=== PATIENT | female | born 1975 | race American Indian/Alaskan Native ===

== ENCOUNTER 2019-05-02 10:34 | Outpatient (CLI) | payer OTHER ==
--- NOTE | 2019-05-02 11:19 | XRay Report ---
BILATERAL FEET, 2 VIEWS INDICATION: BILATERAL FOOT PAIN. COMPARISON: None. IMPRESSION: There has been previous surgical fusion of the talus, calcaneus, navicular and cuboid inna mario in both feet. Please correlate with surgical history. The talar domes in both feet appear flatten ed and irregular suggesting previous fracture. The metatarsals and phalanges are intact and unremarka ble. No erosive joint pathology is identified. No acute osseous findings or bony destruction is detec lowell. The soft tissues are unremarkable. Signer Name: Marcial Jackson Jr, MD Signed: 05/02/2019 11:15 AM Workstation Name: [id number]
== END 2019-05-02 10:35 | disposition home or self-care (01) ==
LOC: XRAY 10:34
PROVIDERS: ATTEND Internal Medicine
DX: M79.671 Pain in right foot (principal); M79.672 Pain in left foot

== ENCOUNTER 2021-10-22 09:00 | Outpatient (CLI) | payer OTHER ==
--- NOTE | 2021-10-22 10:29 | XRay Report ---
BILATERAL FEET 2 VIEWS INDICATION: BILATERAL FOOT PAIN. COMPARISON: 05/02/2019 IMPRESSION: Fusion changes in the mid feet and hind feet bilaterally appear stable. 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 No acute osseous abnormality is appreciated. No eros isaura joint pathology. The soft tissues are unremarkable. No significant change is appreciated since exam. Signer Name: Marcial Jackson Jr, MD Signed: 10/22/2021 10:24 AM Workstation Name: [id number]
== END 2021-10-22 09:01 | disposition home or self-care (01) ==
LOC: XRAY 09:00
PROVIDERS: ATTEND Internal Medicine
DX: M25.474 Effusion, right foot (principal); M25.475 Effusion, left foot